=== PATIENT | female | born 1995 | race American Indian/Alaskan Native ===

== ENCOUNTER 2021-07-30 23:00 | Emergency (ER) | payer MEDICAID ==
[2021-07-31] MEDS ORDERED: ONDANSETRON 4 MG/2 ML INJ IV ONE (00:13)
[2021-07-31] MEDS ORDERED: MORPHINE 4 MG/1 ML INJ IV ONE (00:13)
[2021-07-31] MEDS: SODIUM CHLORIDE 0.9% 1000 ML 1,000 ML IV ONE ×2 (00:39→05:00)
[2021-07-31 00:57] LABS: Hematocrit 27.5 % (30.3-42.9); Hemoglobin 9.5 gm/dl (10.1-14.3); Mean Corpuscular HGB Conc 34 % (30-34); Mean Corpuscular Volume 83 fl (79-97); Platelet Count 281 K/mm3 (140-440); Red Blood Count 3.33 M/mm3 (3.65-5.03); Red Cell Distribution Width 14.3 % (13.2-15.2)
[2021-07-31 01:13] LABS: INR 1.04 (0.87-1.13)
[2021-07-31 01:15] LABS: Blood Urea Nitrogen 6 mg/dL (7-17); Hemolysis Index 0
[2021-07-31 01:29] LABS: BUN/Creatinine Ratio 9
[2021-07-31 02:49] LABS: Eosinophils % (Manual) 0 % (0.0-4.3); Total Cells Counted 100
[2021-07-31 02:51] LABS: Platelet Estimate Consistent w Auto; RBC Morphology Normal
[2021-07-31] MEDS ORDERED: SODIUM CHLORIDE 0.9% 1000 ML 1,000 ML IV ONE (03:52)
[2021-07-31] MEDS ORDERED: SODIUM CHLORIDE 0.9% 1000 ML 1,000 ML ONE (03:53)
[2021-07-31] MEDS ORDERED: SODIUM CHLORIDE 0.9% 100 ML IVPB IV SCH (04:00)
--- NOTE | 2021-07-31 05:38 | Emergency Department Report ---
ED HPI - General Chief complaint: Vaginal Bleeding Stated complaint: VAGINAL BLEEDING Time Seen by Provider: 07/30/21 23:59 Source: patient, EMS Mode of arrival: Stretcher Limitations: No Limitations - History of Present Illness Initial comments: at 8 weeks no care, started bleeding 2 days ago with cramping no dizziness no syncope, MD Complaint: abdominal pain -: Gradual, days(s) Severity scale (0 -10): 3 Quality: cramping Consistency: intermittent Improves with: none :: No - Related Data Allergies Allergy/AdvReac Type Severity Reaction Status Date / Time No Known Allergies Allergy Verified 07/30/21 23:44 ED Review of Systems ROS: Stated complaint: VAGINAL BLEEDING Other details as noted in HPI Constitutional: denies: chills, fever Eyes: denies: eye pain, eye discharge, vision change ENT: denies: ear pain, throat pain Respiratory: denies: cough, shortness of breath, wheezing Cardiovascular: denies: chest pain, palpitations Endocrine: no symptoms reported Gastrointestinal: denies: abdominal pain, nausea, diarrhea Genitourinary: denies: urgency, dysuria, discharge Musculoskeletal: denies: back pain, joint swelling, arthralgia Skin: denies: rash, lesions Neurological: denies: headache, weakness, paresthesias Psychiatric: denies: anxiety, depression Hematological/Lymphatic: denies: easy bleeding, easy bruising ED Past Medical Hx - Past Medical History Previous Medical History?: No ED Physical Exam - General Limitations: No Limitations General appearance: alert, in no apparent distress - Head Head exam: Present: atraumatic, normocephalic - Eye Eye exam: Present: normal appearance - ENT ENT exam: Present: mucous membranes moist - Neck Neck exam: Present: normal inspection - Respiratory Respiratory exam: Present: normal lung sounds bilaterally. Absent: respiratory distress - Cardiovascular Cardiovascular Exam: Present: regular rate, normal rhythm. Absent: systolic murmur, diastolic murmur, rubs, gallop - GI/Abdominal GI/Abdominal exam: Present: soft, normal bowel sounds - Extremities Exam Extremities exam: Present: normal inspection - Back Exam Back exam: Present: normal inspection - Neurological Exam Neurological exam: Present: alert, oriented X3 - Psychiatric Psychiatric exam: Present: normal affect, normal mood - Skin Skin exam: Present: warm, dry, intact, normal color. Absent: rash ED Course Vital Signs 07/30/21 07/31/21 07/31/21 23:45 01:43 03:02 Temperature 98.4 F Pulse Rate 110 H 104 H 90 Respiratory 18 19 16 Rate Blood Pressure 105/67 88/48 99/59 [Left] O2 Sat by Pulse 98 99 100 Oximetry 07/31/21 07/31/21 07/31/21 03:59 05:05 05:24 Temperature Pulse Rate 84 87 92 H Respiratory 15 16 16 Rate Blood Pressure 86/52 92/51 96/55 [Left] O2 Sat by Pulse 100 100 99 Oximetry - Reevaluation(s) Reevaluation #1: 07/31/21 05:36 H.H stable bleeding stopped , US showed no IUP, possible hematoma, fluids given doens;t need rhogam , will follow up with Ob , precuations of bleeding given ED Medical Decision Making - Lab Data Result diagrams: 07/31/21 00:36 07/31/21 00:36 Critical care attestation.: If time is entered above; I have spent that time in minutes in the direct care of this critically ill patient, excluding procedure time. ED Disposition Clinical Impression: Miscarriage at 8 to 28 weeks gestation Disposition: 01 HOME / SELF CARE / HOMELESS Is pt being admited?: No Does the pt Need Aspirin: No Condition: Stable Instructions: Miscarriage, Managing Loss Referrals: [facility] [Other] - 3-5 Days
[2021-07-31 07:02] VITALS: BP 82/45
--- NOTE | 2021-08-02 08:10 | Ultrasound Report ---
OB Ultrasound HISTORY: Vaginal bleeding. TECHNIQUE: Grayscale and color imaging performed. COMPARISON: None FINDINGS: Uterus measures 13.8 x 6.9 x 9.0 cm with endometrial echo complex measuring 2.8 cm. No intr auterine gestation identified. There is some rim calcification and also a small amount of internal co mplex fluid/hematoma. Both ovaries appear unremarkable with preserved blood flow and tiny follicles. No pelvic free fluid. IMPRESSION: Thickened and heterogeneous endometrial echocomplex with scattered internal calcification . Findings could at least in part be seen with hematoma formation; however, close attention on follow -up recommended and if needed endometrial sampling with OB consult. No intrauterine gestation identif ied. Signer Name: Clifton Alonzo MD Signed: 07/31/2021 2:56 AM Workstation Name: [id number]
== END 2021-07-31 08:10 | disposition home or self-care (01) ==
LOC: ED 23:00
DX: O03.9 Complete or unspecified spontaneous abortion without complication (principal); Z3A.08 8 weeks gestation of pregnancy
CPT/HCPCS: 36415; 76801; 76817; 80048; 84702; 85007; 85025; 85610; 86850; 86900; 86901; 96361; 96374; 96375; 99284; J2270; J2405; J7030; Q0162

== ENCOUNTER 2021-08-02 01:24 | Emergency (ER) | payer MEDICAID ==
[2021-08-02] MEDS ORDERED: MORPHINE 4 MG/1 ML INJ IV ONE (02:31)
[2021-08-02] MEDS ORDERED: SODIUM CHLORIDE 0.9% 1000 ML 1,000 ML IV ONE (02:31)
[2021-08-02] MEDS ORDERED: ONDANSETRON 4 MG/2 ML INJ IV ONE ×2 (02:31→05:23)
--- NOTE | 2021-08-02 03:02 | Emergency Department Report ---
ED Female HPI - General Chief complaint: Abdominal Pain Stated complaint: MISCARRIAGE Source: patient Mode of arrival: Ambulatory Limitations: No Limitations - History of Present Illness Initial comments: Patient is a A1 26-year-old -[place] female who is approximately 8 weeks gestational who presented to the ED with complaint of acute onset persistent severe pelvic pain with heavy vaginal bleeding for the last 1 week. Patient states that she was initially evaluated for the symptoms in this ED 2 days ago and had ultrasound performed about 12 hours ago which showed no intrauterine . The hCG quant was however significantly elevated at 18,048. Patient states that in the last 8 hours, the pain has worsened such that she has not been able to sleep and that the vaginal bleeding has been heavier. Patient denies fever, chills, dysuria, urinary frequency and urgency, chest pain or shortness of breath, nausea and vomiting or diarrhea. MD Complaint: vaginal bleeding, pelvic pain -: Sudden, week(s) (1) Location: suprapubic, other (vaginal) Radiation: non-radiating Severity: severe Severity scale (0 -10): 8 Quality: cramping, sharp Consistency: constant Improves with: none Worsens with: movement Are you Now?: Yes Associated Symptoms: denies other symptoms, vaginal bleeding, abdominal pain, loss of appetite. denies: nausea/vomiting, fever/chills, headaches, dysuria, hematuria, rash, seizure, shortness of breath, syncope, weakness, other - Related Data Sexually active: Yes : 5 Para: 3 A: 1 Previous Rx's Medication Instructions Recorded Last Taken Type Acetaminophen/Codeine [Tylenol 1 tab PO Q6H PRN #10 tab 07/31/21 Unknown Rx /Codeine # 3 tab] Naproxen 500 mg PO Q12H PRN #30 tab 08/02/21 Unknown Rx Ondansetron [Zofran Odt] 4 mg PO Q8HR PRN #20 tab.rapdis 08/02/21 Unknown Rx oxyCODONE /ACETAMINOPHEN [Percocet 1 tab PO Q6HR PRN #12 tablet 08/02/21 Unknown Rx 5/325] Allergies Allergy/AdvReac Type Severity Reaction Status Date / Time No Known Allergies Allergy Verified 08/02/21 02:26 ED Review of Systems ROS: Stated complaint: MISCARRIAGE Other details as noted in HPI Constitutional: denies: chills, fever Eyes: denies: eye pain, eye discharge, vision change ENT: denies: ear pain, throat pain Respiratory: denies: cough, shortness of breath, wheezing Cardiovascular: denies: chest pain, palpitations Endocrine: no symptoms reported Gastrointestinal: abdominal pain (suprapubic pain). denies: nausea, vomiting, diarrhea Genitourinary: abnormal menses (vaginal bleeding). denies: urgency, dysuria, frequency, hematuria, discharge Musculoskeletal: denies: back pain, joint swelling, arthralgia Skin: denies: rash, lesions Neurological: denies: headache, weakness, paresthesias Psychiatric: denies: anxiety, depression Hematological/Lymphatic: denies: easy bleeding, easy bruising ED Past Medical Hx - Past Medical History Previous Medical History?: No - Surgical History Past Surgical History?: No - Medications Home Medications: Home Medications Medication Instructions Recorded Confirmed Last Taken Type Acetaminophen/Codeine [Tylenol 1 tab PO Q6H PRN #10 tab 07/31/21 Unknown Rx /Codeine # 3 tab] Naproxen 500 mg PO Q12H PRN #30 tab 08/02/21 Unknown Rx Ondansetron [Zofran Odt] 4 mg PO Q8HR PRN #20 tab.rapdis 08/02/21 Unknown Rx oxyCODONE /ACETAMINOPHEN [Percocet 1 tab PO Q6HR PRN #12 tablet 08/02/21 Unknown Rx 5/325] ED Physical Exam - General Limitations: No Limitations General appearance: alert, in no apparent distress - Head Head exam: Present: atraumatic, normocephalic, normal inspection - Eye Eye exam: Present: normal appearance, PERRL, EOMI Pupils: Present: normal accommodation - ENT ENT exam: Present: normal exam, normal orophraynx, mucous membranes moist, TM's normal bilaterally, normal external ear exam - Neck Neck exam: Present: normal inspection, full ROM - Respiratory Respiratory exam: Present: normal lung sounds bilaterally. Absent: respiratory distress, wheezes, rhonchi, stridor, chest wall tenderness, decreased breath s ounds, prolonged expiratory - Cardiovascular Cardiovascular Exam: Present: normal rhythm, tachycardia, normal heart sounds. Absent: systolic murmur, diastolic murmur, rubs, gallop - GI/Abdominal GI/Abdominal exam: Present: soft, tenderness (Palpable severe suprapubic tenderness ), normal bowel sounds. Absent: guarding, rebound, hyperactive bowel sounds, hypoactive bowel sounds, organomegaly - Extremities Exam Extremities exam: Present: normal inspection, full ROM, normal capillary refill - Back Exam Back exam: Present: normal inspection, full ROM. Absent: tenderness, CVA tenderness (L), muscle spasm, paraspinal tenderness - Neurological Exam Neurological exam: Present: alert, oriented X3, CN II-XII intact, normal gait, reflexes normal - Psychiatric Psychiatric exam: Present: normal affect, normal mood - Skin Skin exam: Present: warm, dry, intact, normal color. Absent: rash ED Course Vital Signs 08/02/21 08/02/21 02:23 06:30 Temperature 98.9 F Pulse Rate 102 H 86 Respiratory 20 14 Rate Blood Pressure 113/74 108/56 [Right] O2 Sat by Pulse 100 98 Oximetry ED Medical Decision Making - Lab Data Result diagrams: 08/02/21 02:43 08/02/21 02:43 - Medical Decision Making This is a A1 26-year-old -[place] female who is approximately 8 weeks gestational who presented to the ED with complaint of acute onset persistent severe pelvic pain with heavy vaginal bleeding for the last 1 week. Patient states that she was initially evaluated for the symptoms in this ED 2 days ago and had ultrasound performed about 12 hours ago which showed no intrauterine . The hCG quant was however significantly elevated at 18,048. Patient states that in the last 8 hours, the pain has worsened such that she has not been able to sleep and that the vaginal bleeding has been heavier. In the ED, patient is alert and oriented x3 and is not in any distress but appears to be in significant pain. Patient was treated in the ED for pain, and also received normal saline 1 L IV bolus x1. - Differential Diagnosis Miscarriage; ectopic; UTI; ovarian cyst; subchorionic bleed; Critical care attestation.: If time is entered above; I have spent that time in minutes in the direct care of this critically ill patient, excluding procedure time. ED Disposition Clinical Impression: Abdominal pain during in first trimester, Inevitable complete mi scarriage without complication Disposition: 01 HOME / SELF CARE / HOMELESS Is pt being admited?: No Does the pt Need Aspirin: No Condition: Stable Instructions: Miscarriage, [id number], Abdominal Pain During , [id number], Abdominal Pain (ED) Additional Instructions: All lab test results were reviewed and are all nonactionable except for acute leukocytosis of 17,700 and hCG quant of 9339, which is significantly lower than the hCG quant of 2 days ago which was 18 0 48. This shows that your is not viable at this point. Therefore maintain a complete pelvic rest, take medication with food, drink plenty of fluids and follow-up with your [facility] physician in 5 to 7 days for reevaluation. Return to the ED immediately if symptoms get worse. Prescriptions: Naproxen 500 mg PO Q12H PRN #30 tab PRN Reason: Pain , Severe (7-10) oxyCODONE /ACETAMINOPHEN [Percocet 5/325] 1 tab PO Q6HR PRN #12 tablet PRN Reason: Pain Ondansetron [Zofran Odt] 4 mg PO Q8HR PRN #20 tab.rapdis PRN Reason: Nausea Referrals: DONTRELL CHRISTENSEN MD [Staff Physician] - 3-5 Days Time of Disposition: 03:27 Print Language: ESTONIAN
[2021-08-02 03:34] LABS: Alanine Aminotransferase 7 units/L (7-56); Albumin 2.9 g/dL (3.9-5); Blood Urea Nitrogen 5 mg/dL (7-17); Calcium 8.8 mg/dL (8.4-10.2); Hemolysis Index 1
[2021-08-02 04:00] LABS: BUN/Creatinine Ratio 10
[2021-08-02 04:03] LABS: Hematocrit 23.7 % (30.3-42.9); Hemoglobin 7.8 gm/dl (10.1-14.3); Mean Corpuscular HGB Conc 33 % (30-34); Mean Corpuscular Volume 82 fl (79-97); Platelet Count 328 K/mm3 (140-440); Red Blood Count 2.88 M/mm3 (3.65-5.03); Red Cell Distribution Width 14.6 % (13.2-15.2)
[2021-08-02] MEDS ORDERED: HYDROmorphone 1 MG/1 ML INJ IV ONE (05:23)
[2021-08-02 06:54] LABS: Bilirubin,Urine NEG (Negative); Blood,Urine LG (Negative); Calcium Oxalate Crystals,Urine 2+; Color,Urine Straw (Yellow); Mucus,Urine FEW /HPF; Protein,Urine <15 mg/dL mg/dL (Negative); Urobilinogen,Urine < 2.0 mg/dL (<2.0)
[2021-08-02 08:00] LABS: Band Neutrophils # (Manual) 0.4 K/mm3; Total Cells Counted 100
[2021-08-02 08:01] LABS: Platelet Estimate Consistent w Auto; RBC Morphology Normal
[2021-08-02 08:47] VITALS: BP 97/62
== END 2021-08-02 08:47 | disposition home or self-care (01) ==
LOC: ED 01:24
DX: O03.9 Complete or unspecified spontaneous abortion without complication (principal); Z79.899 Other long term (current) drug therapy; Z3A.08 8 weeks gestation of pregnancy
CPT/HCPCS: 36415; 80053; 81001; 84702; 85007; 85025; 96361; 96374; 96375; 99283; J1170; J2270; J2405; J7030; Q0162